=== PATIENT | female | born 1950 | race Caucasian/White ===

== ENCOUNTER 2016-12-23 18:58 | Emergency (ER) | payer MEDICARE, BC ==
--- NOTE | 2017-01-03 14:39 | ER ---
ADMIT: 12/23/2016 RM/LOC: ER [facility] MR#: [id number] [facility] [address] [place] [id number] SUSU PONCE [address] [place] [id number] Emergency Room Report SEX: F AGE: 65 : 1950 DATE: 12/23/2016 ADDENDUM: CHIEF COMPLAINT: Dog bite. HISTORY OF PRESENT ILLNESS: This is a 65-year-old female who was bit by her daughter's dog. She said all she was doing was reaching down and she went to go pet him, then he turned his head back and bit her in the thumb. PAST MEDICAL HISTORY: Migraines, dizziness. PAST SURGICAL HISTORY: Include hysterectomy, shoulder, knee, and nose surgery. Did have a leg tumor removed. MEDICATIONS: Toprol. ALLERGIES: PENICILLIN. SOCIAL HISTORY: Denies any tobacco or drug use. Drinks alcohol rarely. PHYSICAL EXAMINATION: Please see T-sheet. REVIEW OF SYSTEMS: Please see T-sheet. COURSE IN THE EMERGENCY ROOM: I did do an x-ray. She does have a distal tuft fracture of that right first finger. I did irrigate the wound after numbing it with bupivacaine. Placed Surgicel over the wound. There is no area to suture. The dog had taken off the tip of the finger. I told her to wear this dressing for the next 2-3 days. I am sending her home with hydrocodone for pain. She is allergic to penicillin, so I am sending her home with doxycycline and Flagyl to prevent any infection. She is to follow up with primary care physician to follow with healing of the wound. CLINICAL IMPRESSION: Open fracture of the right first finger, a tuft fracture with an avulsion of the tip. TANIYA Joseph / Cristino Lovelace MD / yaz JOB #: [id number] CC: Cristino Lovelace MD, Attending Physician Tere Gomez, Family Physician
== END 2016-12-23 20:20 | disposition home or self-care (01) ==
LOC: ER 18:58
PROC: 0HQFXZZ Repair Right Hand Skin, External Approach (ICD-10-PCS; principal; 2016-12-23)
DX: S62.521B Displaced fracture of distal phalanx of right thumb, initial encounter for open fracture (principal); S61.011A Laceration without foreign body of right thumb without damage to nail, initial encounter; G43.909 Migraine, unspecified, not intractable, without status migrainosus; Z90.710 Acquired absence of both cervix and uterus; Z88.0 Allergy status to penicillin; Z79.899 Other long term (current) drug therapy; Z23 Encounter for immunization; W54.0XXA Bitten by dog, initial encounter; Y92.009 Unspecified place in unspecified non-institutional (private) residence as the place of occurrence of the external cause